=== PATIENT | female | born 1955 | race Caucasian/White ===

== ENCOUNTER 2020-05-16 07:20 | Outpatient (REF) | payer MEDICARE, SELFPAY ==
--- NOTE | 2020-05-16 07:26 | MM_ITS ---
EXAMINATION: MM SCREENING DIGITAL BREAST TOMOSYNTHESIS, BILATERAL CLINICAL INFORMATION: Screening. Asymptomatic. The lifetime risk of breast cancer based on the Tyrer-Cuzick Model is 3.0%. COMPARISON: Mammography: May 11, 2019 and studies dating back to July 14, 2014 TECHNIQUE: Digital breast tomosynthesis is performed in both the craniocaudal and mediolateral oblique views along with computer-aided detection (CAD). Synthesized 2D images are generated from the tomosynthesis. FINDINGS: The breasts are extremely dense, which lowers the sensitivity of mammography (ACR BI-RADS breast composition Category d). There are no significant masses, abnormal calcifications, or other abnormalities. MM/MM tomosynthesis screening BI IMPRESSION: There are no significant changes from prior study. ASSESSMENT: BI-RADS 1: Negative RECOMMENDATION: Routine annual mammography screening. This patient's information was entered into a reminder system with a target due date for their next mammogram.
== END 2020-05-16 07:21 | disposition home or self-care (01) ==
LOC: HO.MAMMO 07:20
PROVIDERS: PCP Internal Medicine; Visit Provider Internal Medicine
DX: Z12.31 Encounter for screening mammogram for malignant neoplasm of breast (principal)
CPT/HCPCS: 77063; 77067

== ENCOUNTER 2020-11-22 07:26 | Outpatient (REF) | payer MEDICARE, SELFPAY ==
[2020-11-22 11:47] LABS: Alanine Aminotransferase 22 U/L (0-31); Albumin Level 4.3 g/dL (3.5-5.0); Alkaline Phosphatase 72 U/L (39-117); Anion Gap 13 (12-20); Aspartate Amino Transferase 25 U/L (5-31); Bilirubin Total 0.7 mg/dL (0.0-1.0); Blood Urea Nitrogen 13 mg/dL (9-16); Carbon Dioxide 28 mmol/L (22-29); Chloride 103 mmol/L (96-108); Cholesterol 157 mg/dL; Estimated Glomerular Filt Rate > 60; Glucose Fasting 89 mg/dL (60-99); HDL Cholesterol 63 mg/dL; LDL Cholesterol Calculated 81 mg/dl; Sodium 139 mmol/L (135-145); Total Protein 6.8 g/dL (6.5-8.0); Triglycerides 66 mg/dL
[2020-11-22 12:05] LABS: SARS COV2 IgG Negative (Negative)
== END 2020-11-22 07:27 | disposition home or self-care (01) ==
LOC: HO.HMGCLDS 07:26
PROVIDERS: PCP Internal Medicine; Visit Provider Internal Medicine
DX: Z01.84 Encounter for antibody response examination (principal); E78.5 Hyperlipidemia, unspecified
CPT/HCPCS: 36415; 80053; 80061; 86769

== ENCOUNTER 2021-02-28 13:52 | Outpatient (REF) | payer MEDICARE, SELFPAY | END 2021-02-28 13:53 | disposition home or self-care (01) | LOC: HO.LNP 13:52 | PROVIDERS: Visit Provider Hospitalist | DX: R30.0 Dysuria (principal) | CPT/HCPCS: 87086; 87088; 87186 ==

== ENCOUNTER 2021-10-14 12:39 | Outpatient (REF) | payer MEDICARE, SELFPAY ==
--- NOTE | ~2021-10-14 | MM_ITS ---
EXAMINATION: MM SCREENING DIGITAL BREAST TOMOSYNTHESIS, BILATERAL CLINICAL INFORMATION: Screening. Asymptomatic. The lifetime risk of breast cancer based on the Tyrer-Cuzick Model is 3%. COMPARISON: Mammography: 05/16/2020, 05/11/2019, 02/11/2017 TECHNIQUE: Digital breast tomosynthesis is performed in both the craniocaudal and mediolateral oblique views along with computer-aided detection (CAD). Synthesized 2D images are generated from the tomosynthesis. FINDINGS: The breasts are heterogeneously dense, which may obscure small masses (ACR BI-RADS breast composition Category c). There are no significant masses, abnormal calcifications, or other abnormalities. Parenchymal pattern is similar to prior studies. There is no developing density or architectural abnormality. The axilla and skin contours are unremarkable. No significant changes. MM/MM tomosynthesis screening BI IMPRESSION: No mammographic evidence of malignancy. ASSESSMENT: BI-RADS 1: Negative RECOMMENDATION: Routine annual mammography screening. This patient's information was entered into a reminder system with a target due date for their next mammogram.
== END 2021-10-14 12:40 | disposition home or self-care (01) ==
LOC: HO.MAMMO 12:39
PROVIDERS: PCP Internal Medicine; Visit Provider Internal Medicine
DX: Z12.31 Encounter for screening mammogram for malignant neoplasm of breast (principal)
CPT/HCPCS: 77063; 77067

== ENCOUNTER 2021-11-05 06:42 | Outpatient (REF) | payer MEDICARE, SELFPAY ==
[2021-11-05 11:33] LABS: Appearance Urine TURBID; Color Urine YELLOW; Glucose Urine UA NEG (NEG); Leukocyte Esterase Urine TRACE (NEG); Nitrite Urine NEG (NEG); Specific Gravity - Urine >= 1.030 (1.005-1.025); Urine Blood NEG (NEG); Urine Ketones 5 MG/DL (NEG); Urine Protein TRACE MG/DL (NEG-TRACE)
[2021-11-05 11:46] LABS: Hematocrit 38.3 % (37.0-47.0); Hemoglobin 12.3 g/dl (12.0-16.0); Mean Corpuscular HGB Conc 32.1 g/dl (31.0-35.0); Mean Corpuscular Hemoglobin 29.5 pg (27.0-33.0); Mean Corpuscular Volume 91.8 fL (80.0-98.0); Mean Platelet Volume 9.2 fL (9.4-12.3); Platelet Count 322 X10*3/uL (160-400); Red Blood Count 4.17 X10*6/uL (4.20-5.50); White Blood Count 5.2 X10*3/uL (4.8-10.8)
[2021-11-05 11:54] LABS: Amorphous Sediment Urine 4+ /LPF; RBC Urine 0 /HPF (0); Uric Acid Crystals Urine 2+ /LPF; WBC Urine 0-2 /HPF (0-4)
[2021-11-05 12:04] LABS: Alanine Aminotransferase 20 U/L (0-31); Albumin Level 4.1 g/dL (3.5-5.0); Alkaline Phosphatase 73 U/L (39-117); Anion Gap 10 (12-20); Aspartate Amino Transferase 27 U/L (5-31); Bilirubin Total 0.5 mg/dL (0.0-1.0); Blood Urea Nitrogen 14 mg/dL (9-16); Calcium 9.4 mg/dL (8.4-10.2); Carbon Dioxide 28 mmol/L (22-29); Chloride 106 mmol/L (96-108); Cholesterol 153 mg/dL; Estimated Glomerular Filt Rate > 60; Glucose Fasting 108 mg/dL (60-99); HDL Cholesterol 68 mg/dL; LDL Cholesterol Calculated 74 mg/dl; Potassium 4.4 mmol/L (3.3-5.1); Sodium 140 mmol/L (135-145); Total Protein 6.7 g/dL (6.5-8.0); Triglycerides 56 mg/dL
[2021-11-05 12:25] LABS: TSH reflex Free T4 2.57 uIU/mL (0.32-4.0)
== END 2021-11-05 06:43 | disposition home or self-care (01) ==
LOC: HO.HMGCLDS 06:42
PROVIDERS: Visit Provider Internal Medicine
DX: Z00.00 Encounter for general adult medical examination without abnormal findings (principal); E78.5 Hyperlipidemia, unspecified
CPT/HCPCS: 36415; 80053; 80061; 81001; 84443; 85027

== ENCOUNTER 2022-11-07 06:36 | Outpatient (REF) | payer MEDICARE, SELFPAY ==
[2022-11-07 11:09] LABS: MANUAL DIFF FLAG NO
[2022-11-07 11:18] LABS: Basophils Percent Auto 0.8 % (0-2); Eosinophils Absolute Auto 0.5 X10*3/uL (0.0-0.4); Eosinophils Percent Auto 9.4 % (0-4); Hematocrit 40.3 % (37.0-47.0); Hemoglobin 12.9 g/dl (12.0-16.0); Imm Gran Abs Auto 0.01 X10*3/uL (0.00-0.03); Imm Gran Pct Auto 0.2 % (0.0-0.4); Lymphocytes Percent Auto 40.4 % (20-40); Mean Corpuscular Hemoglobin 29.3 pg (27.0-33.0); Mean Corpuscular Volume 91.4 fL (80.0-98.0); Mean Platelet Volume 9.2 fL (9.4-12.3); Monocytes Absolute Auto 0.4 X10*3/uL (0.1-1.2); Monocytes Percent Auto 7.2 % (2-11); Neutrophils Absolute Auto 2.1 x10*3/uL (2.0-8.3); Platelet Count 323 X10*3/uL (160-400); Red Blood Count 4.41 X10*6/uL (4.20-5.50); Red Cell Distribution Width 13.4 % (11.0-16.0)
[2022-11-07 12:12] LABS: Alanine Aminotransferase 19 U/L (0-31); Albumin Level 4.2 g/dL (3.5-5.0); Alkaline Phosphatase 70 U/L (39-117); Anion Gap 11 (12-20); Aspartate Amino Transferase 24 U/L (5-31); Bilirubin Total 0.9 mg/dL (0.0-1.0); Blood Urea Nitrogen 11 mg/dL (9-16); Carbon Dioxide 28 mmol/L (22-29); Chloride 106 mmol/L (96-108); Cholesterol 160 mg/dL; Estimated Glomerular Filt Rate > 60; Glucose Fasting 84 mg/dL (60-99); HDL Cholesterol 63 mg/dL; Potassium 4.1 mmol/L (3.3-5.1); Sodium 141 mmol/L (135-145); Total Protein 6.4 g/dL (6.5-8.0)
[2022-11-07 13:06] LABS: TSH reflex Free T4 3.14 uIU/mL (0.32-4.0)
[2022-11-11 15:58] LABS: Triglycerides 45 mg/dL
[2022-11-11 15:59] LABS: LDL Cholesterol Calculated 88 mg/dl
== END 2022-11-07 06:37 | disposition home or self-care (01) ==
LOC: HO.HMGCLDS 06:36
PROVIDERS: PCP Internal Medicine; Visit Provider Internal Medicine
DX: Z00.00 Encounter for general adult medical examination without abnormal findings (principal); E78.5 Hyperlipidemia, unspecified
CPT/HCPCS: 36415; 80053; 80061; 84443; 85025

== ENCOUNTER 2022-12-24 07:25 | Outpatient (REF) | payer MEDICARE, SELFPAY ==
--- NOTE | ~2022-12-24 | MM_ITS ---
EXAMINATION: MM SCREENING DIGITAL BREAST TOMOSYNTHESIS, BILATERAL CLINICAL INFORMATION: Screening. Asymptomatic. The lifetime risk of breast cancer based on the Tyrer-Cuzick Model is 3%. COMPARISON: Mammography: 10/14/2021, 05/16/2020, 05/11/2019, 02/11/2017; outside exam 07/14/2014 ([facility]). TECHNIQUE: Digital breast tomosynthesis is performed in both the craniocaudal and mediolateral oblique views along with computer-aided detection (CAD). Synthesized 2D images are generated from the tomosynthesis. FINDINGS: The breasts are heterogeneously dense, which may obscure small masses (ACR BI-RADS breast composition Category c). There are no significant masses, abnormal calcifications, or other abnormalities. No architectural abnormality or developing density or significant change from prior studies. Incidental intramammary node posterior upper outer left breast similar to prior exams. The axilla are unremarkable. MM/MM tomosynthesis screening BI IMPRESSION: No mammographic evidence of malignancy. ASSESSMENT: BI-RADS 2: Benign RECOMMENDATION: Routine annual mammography screening. This patient's information was entered into a reminder system with a target due date for their next mammogram.
== END 2022-12-24 07:26 | disposition home or self-care (01) ==
LOC: HO.MAMMO 07:25
PROVIDERS: PCP Internal Medicine; Visit Provider Internal Medicine
DX: Z12.31 Encounter for screening mammogram for malignant neoplasm of breast (principal)
CPT/HCPCS: 77063; 77067

== ENCOUNTER 2023-11-13 07:23 | Outpatient (REF) | payer MEDICARE, SELFPAY ==
[2023-11-13 11:10] LABS: MANUAL DIFF FLAG NO
[2023-11-13 11:19] LABS: Basophils Percent Auto 0.8 % (0-2); Eosinophils Absolute Auto 0.3 X10*3/uL (0.0-0.4); Eosinophils Percent Auto 7.2 % (0-4); Hematocrit 39.2 % (37.0-47.0); Hemoglobin 12.8 g/dl (12.0-16.0); Imm Gran Abs Auto 0.01 X10*3/uL (0.00-0.03); Imm Gran Pct Auto 0.2 % (0.0-0.4); Lymphocytes Absolute Auto 1.8 X10*3/uL (1.2-4.9); Lymphocytes Percent Auto 38.6 % (20-40); Mean Corpuscular HGB Conc 32.7 g/dl (31.0-35.0); Mean Corpuscular Hemoglobin 29.8 pg (27.0-33.0); Mean Corpuscular Volume 91.4 fL (80.0-98.0); Monocytes Absolute Auto 0.4 X10*3/uL (0.1-1.2); Monocytes Percent Auto 7.8 % (2-11); Neutrophils Absolute Auto 2.2 x10*3/uL (2.0-8.3); Neutrophils Percent Auto 45.4 % (45-73); Platelet Count 283 X10*3/uL (160-400); Red Blood Count 4.29 X10*6/uL (4.20-5.50); Red Cell Distribution Width 13.4 % (11.0-16.0); White Blood Count 4.7 X10*3/uL (4.8-10.8)
[2023-11-13 12:19] LABS: Alanine Aminotransferase 17 U/L (0-31); Albumin Level 3.9 g/dL (3.5-5.0); Alkaline Phosphatase 65 U/L (39-117); Anion Gap 13 (12-20); Aspartate Amino Transferase 21 U/L (5-31); Bilirubin Total 0.5 mg/dL (0.0-1.0); Blood Urea Nitrogen 19 mg/dL (9-16); Calcium 9.5 mg/dL (8.4-10.2); Carbon Dioxide 29 mmol/L (22-29); Chloride 108 mmol/L (96-108); Cholesterol 158 mg/dL (<200); Estimated Glomerular Filt Rate > 60; Glucose Fasting 88 mg/dL (60-99); HDL Cholesterol 62 mg/dL (>40); LDL Cholesterol Calculated 86 mg/dL (<100); Potassium 4.5 mmol/L (3.3-5.1); Sodium 145 mmol/L (135-145); Total Protein 6.6 g/dL (6.5-8.0); Triglycerides 54 mg/dL (<150)
== END 2023-11-13 07:24 | disposition home or self-care (01) ==
LOC: HO.HMGCLDS 07:23
PROVIDERS: PCP Internal Medicine; Visit Provider Internal Medicine
DX: Z00.00 Encounter for general adult medical examination without abnormal findings (principal); E78.5 Hyperlipidemia, unspecified; E55.9 Vitamin D deficiency, unspecified
CPT/HCPCS: 36415; 80053; 80061; 82306; 85025

== ENCOUNTER 2023-11-15 09:00 | Outpatient (AMB) | payer MEDICARE, SELFPAY ==
--- NOTE | 2023-11-15 09:07 | MHC.PC.OV ---
Vital Signs 11/15/23 09:08 Height 5 ft 2 in Weight 143 lb BMI 26.2 BP 118/74 Blood Pressure Location Rt brachial Position Sitting Pulse 75 Pulse Source Pulse Oximeter Pulse Oximetry (%) 98 Oxygen Delivery Method Room Air Intake Visit Reasons: Annual PE Intake Note: Pt is here today for PE. Allergies No Known Allergies Allergy (Verified 11/15/23 09:10) Medication List - Last Reconciled 11/15/23 by Parisa Benjamin MD atorvastatin 20 mg PO DAILY naproxen 500 mg PO BID PRN omeprazole 20 mg PO DAILY Tobacco use date assessed: 11/15/23 Fall risk assessment: No Falls in past year Last assessed Fall Risk: 11/15/23 Dental Screening Dental Screen Date: 11/15/23 Did you have a dental visit in the last 12 months?: Yes Did you have a dental problem in the last 6 months where you did not have access to dental care?: No Was dental information given to patient?: Patient has dentist HPI Annual PE HPI Details Patient presents for physical PFSH Medical History (Updated 11/15/23 @ 09:37 by Parisa Benjamin MD) Annual physical exam Osteoporosis Uveitis Hepatitis C GERD (gastroesophageal reflux disease) Insomnia Recovering alcoholic Osteoarthritis Fibromyalgia Hyperlipidemia Surgical History Hx of umbilical hernia repair S/P LEONARDO (total abdominal hysterectomy) History of esophagogastroduodenoscopy (EGD) H/O colonoscopy Family History Father Substance use disorder Brother Substance use disorder Brother Substance use disorder Social History Housing: House Patient Tobacco Use Status: Former Tobacco user (35 years ago) e-Cigarette/Vaping Use: Never Used service: No Current occupational status: retired Cognitive needs: No Hearing needs: No Vision needs: Yes Questionnaire PHQ-9 Over the last 2 weeks, how often have you been bothered by any of the following problems? 1. Little interest or pleasure in doing things: not at all 2. Feeling down, depressed, or hopeless: not at all 3. Trouble falling or staying asleep, or sleeping too much: not at all 4. Feeling tired or having little energy: not at all 5. Poor appetite or overeating: not at all 6. Feeling bad about yourself - or that you are a failure or have let yourself or your family down: not at all 7. Trouble concentrating on things, such as reading the newspaper or watching television: not at all 8. Moving or speaking so slowly that other people could have noticed. Or the opposite - being so fidgety or restless that you have been moving around a lot more than usual: not at all 9. Thoughts that you would be better off or of hurting yourself in some way: not at all Total score: 0 Depression Screening Interpretation: Negative Depression Screening Done: Yes Source: Developed by Drs. Julius Newell, Hoa London, Ruddy Britton and colleagues, with an educational debbie from [employer] Thrive Questionnaire Date Thrive assessed: 11/15/23 I am a: Patient What is your living situation today?: I have a steady place to live Within the past 12 months, did the food you bought not last and you didn't have the money to get more?: Never true Within the past 12 months, did you worry whether your food would run out before you got money to buy more?: Never true Do you have trouble paying for medicines?: No Do you have trouble getting transportation to medical appointments?: No Do you have trouble paying your heating and electricity bill?: No Do you have trouble taking care of your child, family member or friend?: No Do you have trouble with day-to-day activities such as bathing, preparing meals, shopping, managing finances, etc.?: No Are you currently unemployed and looking for a job?: No Are you interested in more education?: No Please select the resources that you would like help with: None THRIVE Score: 0 AUDIT C Alcohol Use Questionnaire (AUDIT-C) 1. How often do you have a drink containing alcohol?: Never 3. How often do you have six or more drinks on one occasion?: Never Total Score: 0 BRETT-7 AMB Questionnaire BRETT-7 Date BRETT - 7 assessed: 11/15/23 Feeling nervous, anxious, or on edge: 0 = Not at all Not being able to stop or control worryin = Not at all Worrying too much about different things: 0 = Not at all Trouble relaxin = Not at all Being so restless that it is hard to sit still: 0 = Not at all Becoming easily annoyed or irritable: 0 = Not at all Feeling afraid as if something awful might happen: 0 = Not at all Total BRETT-7 score (0-4 normal; 5-9 mild; 10-14 moderate; 15-21 severe): 0 Source: Developed by Drs. Julius Newell, Hoa London, Ruddy Britton and colleagues, with an educational debbie from [employer] Review of Systems Const All systems reviewed & are unremarkable except as noted in HPI and below Reports no additional complaints ENT Reports no additional complaints Card Reports no additional complaints Resp Reports no additional complaints GI Reports no additional complaints Reports no additional complaints Physical exam (Primary Care) Vital Signs: Last Vital Signs Pulse 75 11/15/23 09:08 BP 118/74 11/15/23 09:08 Pulse Ox 98 11/15/23 09:08 Oxygen Delivery Method Room Air 11/15/23 09:08 BMI result Body Mass Index 26.2 Tobacco/Smoking Status: Tobacco use Status Tobacco use date assessed 11/15/23 11/15/23 09:13 Patient Tobacco Use Status Former Tobacco user (35 11/15/23 09:13 years ago) e-Cigarette/Vaping Use Never Used 11/15/23 09:13 PHQ-9: PHQ-9 Score PHQ-9: Total score 0 11/15/23 10:02 Depression Screening Interpretation: Negative Thrive Assessment: Date of Thrive Assessment Date Thrive assessed 11/15/23 11/15/23 10:02 Const General: no acute distress HENMT Head: Yes normal to inspection General nose exam: Normal external nose present Mouth: Normal oral and palatal mucosa present Throat: Yes posterior oropharynx normal Eyes General: appearance normal, both eyes and all related structures Neck Neck: Yes no lymphadenopathy and Yes supple Resp Effort & Inspection: normal respiratory effort Auscultation: clear to auscultation bilaterally Cardio Rhythm: regular rhythm Heart sounds: S1 normal heart sound present and S2 normal heart sound present GI Inspection: Yes normal to inspection Palpation (GI): Soft to palpation Percussion: Yes normal to percussion Auscultation: normal bowel sounds Assessment and Plan Assessment & Plan (1) Annual physical exam: Code(s): Z00.00 - Encounter for general adult medical examination without abnormal findings Plan: Well-balanced diet regular physical activity discussed with the patient. She is up-to-date with mammogram colonoscopy (2) Postmenopausal: Code(s): Z78.0 - Asymptomatic menopausal state Plan: Check DEXA Orders: Orders Comprehensive [place]. Panel Fast 1 Year E55.9 - Vitamin D deficiency, unspecified, E78.5 - Hyperlipidemia, unspecified, Z00.00 - Encounter for general adult medical examination without abnormal findings, Z78.0 - Asymptomatic menopausal state Complete Blood Count Auto Diff 1 Year E55.9 - Vitamin D deficiency, unspecified, E78.5 - Hyperlipidemia, unspecified, Z00.00 - Encounter for general adult medical examination without abnormal findings, Z78.0 - Asymptomatic menopausal state XR DEXA axial skeleton Today Z78.0 - Asymptomatic menopausal state TSH reflex Free T4 1 Year E55.9 - Vitamin D deficiency, unspecified, E78.5 - Hyperlipidemia, unspecified, Z00.00 - Encounter for general adult medical examination without abnormal findings, Z78.0 - Asymptomatic menopausal state Lipid Panel 1 Year E55.9 - Vitamin D deficiency, unspecified, E78.5 - Hyperlipidemia, unspecified, Z00.00 - Encounter for general adult medical examination without abnormal findings, Z78.0 - Asymptomatic menopausal state Vitamin D 25-OH Total 1 Year E55.9 - Vitamin D deficiency, unspecified, E78.5 - Hyperlipidemia, unspecified, Z00.00 - Encounter for general adult medical examination without abnormal findings, Z78.0 - Asymptomatic menopausal state Coding Level of Care Code Est Pt Prev Care >65y(94526) Diagnoses Annual physical exam Z00.00 Postmenopausal Z78.0
[2023-11-15 09:08] VITALS: BP 118/74; PULSE 75; O2SAT 98; BMI 26.2
== END 2023-11-15 09:53 | disposition home or self-care (01) ==
PROVIDERS: Visit Provider Internal Medicine
DX: Z00.00 Encounter for general adult medical examination without abnormal findings (principal); Z78.0 Asymptomatic menopausal state
CPT/HCPCS: 99397

== ENCOUNTER 2023-12-03 11:12 | Outpatient (REF) | payer MEDICARE, SELFPAY ==
--- NOTE | ~2023-12-03 | MM_ITS ---
EXAMINATION: BONE DENSITOMETRY CLINICAL INDICATION: Asymptomatic menopausal state. COMPARISON: Baseline BD dated 12/23/2017. TECHNIQUE: Using a [employer] DXA System (software version: 13.1) manufactured by [employer], dual-energy x-ray absorptiometry was performed of the lumbar spine and left hip. The images are of good technical quality. Summary results are attached. FINDINGS: LEFT FEMUR, NECK: Current: BMD 0.770 g/cm2, Z-score -0.2, T-score -1.9, osteopenia. Baseline: BMD 0.905 g/cm2. LEFT FEMUR, TOTAL: Current: BMD 0.829 g/cm2, Z-score 0.0, T-score -1.4, osteopenia, 14.6% decrease from baseline (<5% change is not significant). Baseline: BMD 0.971 g/cm2. AP SPINE L1-L3 (excluding L4): The data of L1-L4 has been changed to exclude the L4 vertebral body, because degenerative sclerosis at this level may cause overestimation of lumbar spine density. Current: BMD 0.839 g/cm2, Z-score -1.1, T-score -2.8, osteoporosis, 10.2% decrease from baseline (<5% change is not significant). Baseline: BMD 0.934 g/cm2. IDENTIFIED RISK FACTORS: Early menopause, secondary osteoporosis, hysterectomy, right ovariectomy,. HISTORY OF FRACTURE: None listed. MEDICATIONS: Calcium, multivitamin, vitamin D. MM/XR DEXA axial skeleton IMPRESSION: 1. DIAGNOSIS: Osteoporosis based on the lowest T-score value of -2.8 in the lumbar spine applying World Health Organization criteria. 2. 10-YEAR FRACTURE RISK PREDICTION, FRAX: According to the guidelines, FRAX calculation should only be performed on patients in the osteopenia bone density category. Therefore, FRAX was not performed on this patient.? 3. Treatment Recommendations: NOF guidelines recommend consideration for treatment in postmenopausal women and men age 50 and older presenting with the following: -A hip or vertebral (clinical or morphometric) fracture. -T-score less than or equal to -2.5 at the femoral neck or spine after appropriate evaluation to exclude secondary causes. -Low bone mass at the hip or spine and a 10-year fracture probability by FRAX of greater than or equal to 3% for hip fracture or greater than or equal to 20% for major osteoporotic fracture based on the [place] adapted WHO algorithm. 4. Other Recommendations: All treatment decisions require clinical judgment and consideration of individual patient factors, including patient preferences, comorbidities, previous drug use, risk factors not captured in the FRAX model (e.g. frailty, falls, vitamin D deficiency, increased bone turnover, interval significant decline in bone density) and possible under or overestimation of fracture risk by FRAX. Additional medical evaluation for secondary cause of low bone mineral density may be appropriate. FUTURE SCAN RECOMMENDATION: People with diagnosed cases of osteoporosis or at high risk for fracture should have regular bone mineral density tests. For patients eligible for Medicare, routine testing is allowed once every 2 years. The testing frequency can be increased to one year for patients who have rapidly progressing disease, those who are receiving or discontinuing medical therapy to restore bone mass, or have additional risk factors.
== END 2023-12-03 11:13 | disposition home or self-care (01) ==
LOC: HO.MAMMO 11:12
PROVIDERS: PCP Internal Medicine; Visit Provider Internal Medicine
DX: Z13.820 Encounter for screening for osteoporosis (principal); Z78.0 Asymptomatic menopausal state
CPT/HCPCS: 77080

== ENCOUNTER 2023-12-14 08:13 | Outpatient (AMB) | payer MEDICARE, SELFPAY ==
--- NOTE | 2023-12-14 09:05 | AM.OFFWIN_ITS ---
Intake Vital Signs 12/14/23 09:06 Height 5 ft 2 in Weight 143 lb BMI 26.2 BP 122/74 Blood Pressure Location Rt brachial Position Sitting Pulse 76 Pulse Source Pulse Oximeter Temp 97.8 F Temp Source Oral Pulse Oximetry (%) 98 Intake Visit Reasons: EP LT Foot Lump under Arch/RT shoulder Intake Note: pt is here left foot lump in the middle of under foot in arch. patient also states she is experiencing right shoulder pain Patient Tobacco Use Status: Former Tobacco user (35 years ago) Allergies No Known Allergies Allergy (Verified 12/14/23 09:07) Do you need a note to return to daycare/school/sports/work: Yes HPI HPI Comments History of Present Illness Details This is a 68-year-old female with a past medical history of hyperlipidemia and gastroesophageal reflux disease presenting for evaluation of left foot pain and right shoulder pain. Patient states she has a history of plantar fasciitis and she has been having pain in her left foot arch for the past 1 month. Patient has been using ice after work and Naprosyn twice daily without complete relief for discomfort. Patient states that she feels there is a lump on her left foot arch. Additionally, patient is complaining of posterior right shoulder pain that is exacerbated by repetitive motion when she works at [employer]. Patient has been taking Naprosyn twice daily for the past 1 month. [facility], [facility] Medical History Annual physical exam Osteoporosis Uveitis Hepatitis C GERD (gastroesophageal reflux disease) Insomnia Recovering alcoholic Osteoarthritis Fibromyalgia Hyperlipidemia Surgical History Hx of umbilical hernia repair S/P LEONARDO (total abdominal hysterectomy) History of esophagogastroduodenoscopy (EGD) H/O colonoscopy Family History Father Substance use disorder Brother Substance use disorder Brother Substance use disorder Social History Housing: House Patient Tobacco Use Status: Former Tobacco user (35 years ago) e-Cigarette/Vaping Use: Never Used service: No Current occupational status: retired Cognitive needs: No Hearing needs: No Vision needs: Yes Review of Systems Const All systems reviewed & are unremarkable except as noted in HPI and below Reports no additional complaints ENT Reports no additional complaints Card Reports no additional complaints Resp Reports no additional complaints GI Reports no additional complaints Reports no additional complaints Musc Details: Posterior right shoulder pain, Left foot pain, plantar surface. Reports as per HPI Skin/Breast Reports system reviewed and no additional complaints, except as documented Neuro Reports no additional complaints Psych Reports no additional complaints Physical Exam Vital Signs: Last Vital Signs Temp 97.8 F 12/14/23 09:06 Pulse 76 12/14/23 09:06 BP 122/74 12/14/23 09:06 Pulse Ox 98 12/14/23 09:06 BMI result Body Mass Index 26.2 Const General: cooperative, healthy appearing, comfortable, no acute distress, well developed, alert and awake Nutritional Appearance: average body habitus Orientation/consciousness: patient oriented x3 Limitations: no limitations Skin General skin exam: no rashes or lesions noted Neuro General: patient oriented x3 Extrem Other: R. shoulder pain exacerbated with abduction of RUE against resistance and internal rotation of RUE against resistance. General: Yes no calf tenderness and Yes normal gait Right upper extremity: shoulder/upper arm (pain to palpation right posterior SCM and right trapezius musculature) Details: normal to inspection Left lower extremity: foot Details: normal capillary refill, normal to inspection, abnormal to inspection, tenderness Location: of the plantar foot Location: other (medial aspect of the plantar surface of the foot; no subcutaneous lesions noted), toes with normal ROM, no edema and motor-sensory exam Details: two point discrimination normal and light-touch normal Psych Appearance: grossly normal Mental Status: mental status grossly normal Insight: Good insight present (Psych) Judgement: Good judgement present (Psych) Assessment & Plan Assessment & Plan (1) Right shoulder strain: Comment: Given the chronicity of her discomfort, patient would benefit from a physical therapy evaluation. Code(s): S46.911A - Strain of unspecified muscle, fascia and tendon at shoulder and upper arm level, right arm, initial encounter Qualifiers: Encounter type: initial encounter Qualified Code(s): S46.911A - Strain of unspecified muscle, fascia and tendon at shoulder and upper arm level, right arm, initial encounter Plan: Naprosyn twice daily, patient will follow up with primary care physician for physical therapy referral. (2) Plantar fasciitis, left: Comment: Patient reports a history of fibromyalgia as well as left plantar fasciitis. Patient would benefit from a podiatry evaluation for further discussion of arch support. Code(s): M72.2 - Plantar fascial fibromatosis Plan: Naprosyn twice daily; patient will follow up with primary care physician for podiatry referral. Coding Level of Care Code Est Pt Level 3 (62741) Diagnoses Strain of right shoulder, initial encounter S46.911A Encounter type: initial encounter Plantar fasciitis, left M72.2 Time Spent (min) 20
[2023-12-14 09:06] VITALS: BP 122/74; PULSE 76; TEMP 36.6; O2SAT 98; BMI 26.2
== END 2023-12-14 09:50 | disposition home or self-care (01) ==
PROVIDERS: PCP Internal Medicine; Visit Provider Physician Assistant
DX: S46.911A Strain of unspecified muscle, fascia and tendon at shoulder and upper arm level, right arm, initial encounter (principal); M72.2 Plantar fascial fibromatosis
CPT/HCPCS: 99213

== ENCOUNTER 2023-12-28 08:18 | Outpatient (REF) | payer MEDICARE, SELFPAY | END 2023-12-28 08:19 | disposition home or self-care (01) | LOC: HO.MAMMO 08:18 | PROVIDERS: PCP Internal Medicine; Visit Provider Internal Medicine | DX: Z12.31 Encounter for screening mammogram for malignant neoplasm of breast (principal) | CPT/HCPCS: 77063; 77067 ==

== ENCOUNTER → 2023-12-28 08:30 | Outpatient (BNV) | payer MEDICARE, SELFPAY | PROVIDERS: PCP Internal Medicine; Visit Provider Radiology Diagnostic Radiology | DX: Z12.31 Encounter for screening mammogram for malignant neoplasm of breast (principal) | CPT/HCPCS: 77063; 77067 ==

== ENCOUNTER 2024-01-28 11:57 | Outpatient (AMB) | payer MEDICARE, SELFPAY ==
[2024-01-28 11:59] VITALS: BP 122/80; PULSE 68; O2SAT 95; BMI 26.5
--- NOTE | 2024-01-28 11:59 | MHC.PC.OV ---
Vital Signs 01/28/24 11:59 Height 5 ft 2 in Weight 145 lb BMI 26.5 BP 122/80 Blood Pressure Location Rt brachial Position Sitting Pulse 68 Pulse Source Pulse Oximeter Pulse Oximetry (%) 95 Oxygen Delivery Method Room Air Intake Visit Reasons: Discuss osteoporosis treatment Intake Note: Pt is here today to discuss osteoporosis treatment Allergies No Known Allergies Allergy (Verified 01/28/24 12:01) Medication List - Last Reconciled 01/28/24 by Parisa Benjamin MD atorvastatin 20 mg PO DAILY naproxen 500 mg PO BID PRN omeprazole 20 mg PO DAILY Tobacco use date assessed: 01/28/24 Fall risk assessment: No Falls in past year Last assessed Fall Risk: 01/28/24 Dental Screening Dental Screen Date: 01/28/24 Did you have a dental visit in the last 12 months?: No Did you have a dental problem in the last 6 months where you did not have access to dental care?: No Was dental information given to patient?: Patient has dentist HPI Discuss osteoporosis treatment HPI Details Patient presents to discuss DEXA, the lowest T-score is and lumbar spine at -2.8. Patient has been exercising and increased weight lifting to 3 times a week. She has been taking vitamin-D supplement daily [facility] Medical History (Updated 01/28/24 @ 12:43 by Parisa Benjamin MD) Annual physical exam Osteoporosis Uveitis Hepatitis C GERD (gastroesophageal reflux disease) Insomnia Recovering alcoholic Osteoarthritis Fibromyalgia Hyperlipidemia Surgical History Hx of umbilical hernia repair S/P LEONARDO (total abdominal hysterectomy) History of esophagogastroduodenoscopy (EGD) H/O colonoscopy Family History Father Substance use disorder Brother Substance use disorder Brother Substance use disorder Social History Housing: House Patient Tobacco Use Status: Former Tobacco user (35 years ago) e-Cigarette/Vaping Use: Never Used service: No Current occupational status: retired Cognitive needs: No Hearing needs: No Vision needs: Yes Questionnaire PHQ-9 Over the last 2 weeks, how often have you been bothered by any of the following problems? 1. Little interest or pleasure in doing things: not at all 2. Feeling down, depressed, or hopeless: not at all 3. Trouble falling or staying asleep, or sleeping too much: not at all 4. Feeling tired or having little energy: not at all 5. Poor appetite or overeating: not at all 6. Feeling bad about yourself - or that you are a failure or have let yourself or your family down: not at all 7. Trouble concentrating on things, such as reading the newspaper or watching television: not at all 8. Moving or speaking so slowly that other people could have noticed. Or the opposite - being so fidgety or restless that you have been moving around a lot more than usual: not at all 9. Thoughts that you would be better off or of hurting yourself in some way: not at all Total score: 0 Source: Developed by Drs. Julius Newell, Hoa London, Ruddy Britton and colleagues, with an educational debbie from [employer]. Thrive Questionnaire Date Thrive assessed: 11/15/23 I am a: Patient What is your living situation today?: I have a steady place to live Within the past 12 months, did the food you bought not last and you didn't have the money to get more?: Never true Within the past 12 months, did you worry whether your food would run out before you got money to buy more?: Never true Do you have trouble paying for medicines?: No Do you have trouble getting transportation to medical appointments?: No Do you have trouble paying your heating and electricity bill?: No Do you have trouble taking care of your child, family member or friend?: No Do you have trouble with day-to-day activities such as bathing, preparing meals, shopping, managing finances, etc.?: No Are you currently unemployed and looking for a job?: No Are you interested in more education?: No Please select the resources that you would like help with: Housing/[facility] Currently or been in a relationship where the following occur: No concerns reported THRIVE Score: 0 AUDIT C Alcohol Use Questionnaire (AUDIT-C) 1. How often do you have a drink containing alcohol?: Never Total Score: 0 BRETT-7 AMB Questionnaire BRETT-7 Date BRETT - 7 assessed: 05/06/24 Feeling nervous, anxious, or on edge: 0 = Not at all Not being able to stop or control worryin = Not at all Worrying too much about different things: 0 = Not at all Trouble relaxin = Not at all Being so restless that it is hard to sit still: 0 = Not at all Becoming easily annoyed or irritable: 0 = Not at all Feeling afraid as if something awful might happen: 0 = Not at all Total BRETT-7 score (0-4 normal; 5-9 mild; 10-14 moderate; 15-21 severe): 0 Source: Developed by Drs. Julius Newell, Hoa London, Ruddy Britton and colleagues, with an educational debbie from [employer]. Review of Systems Const All systems reviewed & are unremarkable except as noted in HPI and below ENT Reports no additional complaints Card Reports no additional complaints Resp Reports no additional complaints GI Reports no additional complaints Physical exam (Primary Care) Vital Signs: Last Vital Signs Pulse 68 01/28/24 11:59 BP 122/80 01/28/24 11:59 Pulse Ox 95 01/28/24 11:59 Oxygen Delivery Method Room Air 01/28/24 11:59 BMI result Body Mass Index 26.5 Tobacco/Smoking Status: Tobacco use Status Tobacco use date assessed 01/28/24 01/28/24 12:04 Patient Tobacco Use Status Former Tobacco user (34 01/28/24 12:04 years ago) e-Cigarette/Vaping Use Never Used 01/28/24 12:04 PHQ-9: PHQ-9 Score PHQ-9: Total score 0 01/28/24 12:04 Thrive Assessment: Date of Thrive Assessment Date Thrive assessed 11/15/23 01/28/24 12:04 Currently or been in a relationship where the following occur: No concerns reported Resp Effort & Inspection: normal respiratory effort Auscultation: clear to auscultation bilaterally Cardio Rhythm: regular rhythm Heart sounds: S1 normal heart sound present and S2 normal heart sound present GI Inspection: Yes normal to inspection Assessment and Plan Assessment & Plan (1) Osteoporosis: Comment: DEXA 11/2023 T score -2.8 , cont exercise and vit D supplement, repeat in 2 yrs Code(s): M81.0 - Age-related osteoporosis without current pathological fracture Plan: Continue vitamin-D supplement and weight bearing exercise and repeat DEXA in 2 years Coding Level of Care Code Est Pt Level 3 (17455) Diagnoses Osteoporosis M81.0
== END 2024-01-28 12:44 | disposition home or self-care (01) ==
PROVIDERS: PCP Internal Medicine; Visit Provider Internal Medicine
DX: M81.0 Age-related osteoporosis without current pathological fracture (principal)
CPT/HCPCS: 99213

== ENCOUNTER 2024-12-14 07:56 | Outpatient (AMB) | payer MEDICARE, SELFPAY ==
--- OUTSIDE RECORDS SUMMARY | 2024-12-14 08:00 | XMS_ITS | Patient Health Record ---
Author Organization [facility] Address [address] [place] [address] Care Team Providers Care Vice President Of Manufacturing Name Role Phone Parisa Benjamin MD Primary Care Provider Unavaila Jesi Carlos Unavailable [phone] Reason For Referral No Information Encounters Encounter Location Date Provider Diagnosis [facility] [address] [place] [address] 12/27/2023 [facility] [address] [place] [address] 03/23/2024 Jesi Harris Plan Of Treatment No Information Insurance Providers Payer Name Payer Address Payer Phone Subscriber Number Group Number Insured Name Patient Relationship to Insured Coverage Start Date Coverage End Date [facility] 65 Medicare Preferred [address] [place] [address] [phone] [id number] Cony Flowers Self - patient is the insured
[2024-12-14 08:08] VITALS: BP 106/70; PULSE 74; RESP 18; TEMP 36.5; O2SAT 99; BMI 26.5
--- NOTE | 2024-12-14 08:08 | MHC.PC.OV ---
Vital Signs 12/14/24 08:08 Height 5 ft 2 in Weight 145 lb BMI 26.5 BP 106/70 Blood Pressure Location Rt brachial Position Sitting Respiration 18 Pulse 74 Pulse Source Pulse Oximeter Temp 97.7 F Temp Source Oral Pulse Oximetry (%) 99 Oxygen Delivery Method Room Air Intake Visit Reasons: Annual PE Intake Note: Pt is here today for PE. Allergies No Known Allergies Allergy (Verified 12/14/24 08:10) Medication List - Last Reconciled 12/14/24 by Parisa Benjamin MD atorvastatin 20 mg PO DAILY naproxen 500 mg PO BID PRN omeprazole 20 mg PO DAILY Tobacco use date assessed: 12/14/24 Fall risk assessment: No Falls in past year Last assessed Fall Risk: 12/14/24 Dental Screening Dental Screen Date: 12/14/24 Did you have a dental visit in the last 12 months?: Yes Did you have a dental problem in the last 6 months where you did not have access to dental care?: No Was dental information given to patient?: Patient has dentist HPI Annual PE HPI Details Patient presents for physical PFSH Medical History Annual physical exam Osteoporosis Uveitis Hepatitis C GERD (gastroesophageal reflux disease) Insomnia Recovering alcoholic Osteoarthritis Fibromyalgia Hyperlipidemia Surgical History Hx of umbilical hernia repair S/P LEONARDO (total abdominal hysterectomy) History of esophagogastroduodenoscopy (EGD) H/O colonoscopy Family History Father Substance use disorder Brother Substance use disorder Brother Substance use disorder Social History Housing: House Patient Tobacco Use Status: Former Tobacco user e-Cigarette/Vaping Use: Never Used service: No Current occupational status: retired Cognitive needs: No Hearing needs: No Vision needs: Yes Questionnaire PHQ-9 Over the last 2 weeks, how often have you been bothered by any of the following problems? 1. Little interest or pleasure in doing things: not at all 2. Feeling down, depressed, or hopeless: not at all 3. Trouble falling or staying asleep, or sleeping too much: not at all 4. Feeling tired or having little energy: not at all 5. Poor appetite or overeating: not at all 6. Feeling bad about yourself - or that you are a failure or have let yourself or your family down: not at all 7. Trouble concentrating on things, such as reading the newspaper or watching television: not at all 8. Moving or speaking so slowly that other people could have noticed. Or the opposite - being so fidgety or restless that you have been moving around a lot more than usual: not at all 9. Thoughts that you would be better off or of hurting yourself in some way: not at all Total score: 0 Depression Screening Interpretation: Negative Depression Screening Done: Yes 30618 - PHQ-9 Billing: Yes Source: Developed by Drs. Julius Newell, Hoa London, Ruddy Britton and colleagues, with an educational debbie from [employer]. Thrive Questionnaire Date Thrive assessed: 12/14/24 I am a: Patient What is your living situation today?: I have a steady place to live Within the past 12 months, did the food you bought not last and you didn't have the money to get more?: Never true Within the past 12 months, did you worry whether your food would run out before you got money to buy more?: Never true Do you have trouble paying for medicines?: No Do you have trouble getting transportation to medical appointments?: No Do you have trouble paying your heating and electricity bill?: No Do you have trouble taking care of your child, family member or friend?: No Do you have trouble with day-to-day activities such as bathing, preparing meals, shopping, managing finances, etc.?: No Are you currently unemployed and looking for a job?: No Are you interested in more education?: No Please select the resources that you would like help with: None Currently or been in a relationship where the following occur: No concerns reported THRIVE Score: 0 AUDIT C Alcohol Use Questionnaire (AUDIT-C) 1. How often do you have a drink containing alcohol?: Never 3. How often do you have six or more drinks on one occasion?: Never Total Score: 0 BRETT-7 AMB Questionnaire BRETT-7 Date BRETT - 7 assessed: 12/14/24 Feeling nervous, anxious, or on edge: 0 = Not at all Not being able to stop or control worryin = Not at all Worrying too much about different things: 0 = Not at all Trouble relaxin = Not at all Being so restless that it is hard to sit still: 0 = Not at all Becoming easily annoyed or irritable: 0 = Not at all Feeling afraid as if something awful might happen: 0 = Not at all Total BRETT-7 score (0-4 normal; 5-9 mild; 10-14 moderate; 15-21 severe): 0 Source: Developed by Drs. Julius Newell, Hoa London, Ruddy Britton and colleagues, with an educational debbie from [employer]. BRETT-7 Assessment Billing BRETT-7 Assessment Tool: BRETT-7 Assessment 62795 Review of Systems Const All systems reviewed & are unremarkable except as noted in HPI and below Reports no additional complaints Eyes Reports no additional complaints ENT Reports no additional complaints Card Reports no additional complaints Resp Reports no additional complaints GI Reports no additional complaints Reports no additional complaints Physical exam (Primary Care) Vital Signs: Last Vital Signs Temp 97.7 F 12/14/24 08:08 Pulse 74 12/14/24 08:08 Resp 18 12/14/24 08:08 BP 106/70 12/14/24 08:08 Pulse Ox 99 12/14/24 08:08 Oxygen Delivery Method Room Air 12/14/24 08:08 BMI result Body Mass Index 26.5 Tobacco/Smoking Status: Tobacco use Status Tobacco use date assessed 12/14/24 12/14/24 08:11 Patient Tobacco Use Status Former Tobacco user (34 12/14/24 08:11 years ago) e-Cigarette/Vaping Use Never Used 12/14/24 08:11 PHQ-9: PHQ-9 Score PHQ-9: Total score 0 12/14/24 08:36 Depression Screening Interpretation: Negative Thrive Assessment: Date of Thrive Assessment Date Thrive assessed 12/14/24 12/14/24 08:18 Currently or been in a relationship where the following occur: No concerns reported Const General: no acute distress HENMT Head: Yes normal to inspection Ears: hearing grossly normal bilaterally General nose exam: Normal external nose present Face and sinus: Yes normal facial exam Mouth: Normal oral and palatal mucosa present Throat: Yes posterior oropharynx normal Eyes General: appearance normal, both eyes and all related structures Neck Neck: Yes no lymphadenopathy and Yes supple Resp Effort & Inspection: normal respiratory effort Auscultation: clear to auscultation bilaterally Cardio Rhythm: regular rhythm Heart sounds: S1 normal heart sound present and S2 normal heart sound present GI Inspection: Yes normal to inspection Palpation (GI): Soft to palpation Percussion: Yes normal to percussion Auscultation: normal bowel sounds Coding Level of Care Code Est Pt Prev Care >65y(07435) Diagnoses Osteoporosis M81.0 Annual physical exam Z00.00 Hyperlipidemia E78.5 Additional Codes BRETT-7 Assessment Billing - BRETT-7 Assessment Tool: BRETT-7 Assessment 96601 ([id number]) PHQ-9 - 88695 - PHQ-9 Billing: Yes ([id number]) Assessment & Plan Assessment & Plan (1) Osteoporosis: Comment: DEXA 11/2023 T score -2.8 , cont exercise and vit D supplement, repeat in 2 yrs Code(s): M81.0 - Age-related osteoporosis without current pathological fracture Category: Medical Plan: Continue vitamin-D supplement weight-bearing exercises repeat DEXA next year (2) Annual physical exam: Comment: Patient declined Pneumovax 12/2023 Code(s): Z00.00 - Encounter for general adult medical examination without abnormal findings Category: Medical Plan: Well-balanced diet regular exercise discussed with the patient. She will return for fasting blood work. Patient will schedule an appointment for mammogram. She had negative colonoscopy in 2019 (3) Hyperlipidemia: Code(s): E78.5 - Hyperlipidemia, unspecified Category: Medical Plan: Continue statin Orders: Orders Comprehensive Met. Panel 1 Year E78.5 - Hyperlipidemia, unspecified, M81.0 - Age-related osteoporosis without current pathological fracture, Z00.00 - Encounter for general adult medical examination without abnormal findings Complete Blood Count Auto Diff 1 Year E78.5 - Hyperlipidemia, unspecified, M81.0 - Age-related osteoporosis without current pathological fracture, Z00.00 - Encounter for general adult medical examination without abnormal findings Lipid Panel 1 Year E78.5 - Hyperlipidemia, unspecified, M81.0 - Age-related osteoporosis without current pathological fracture, Z00.00 - Encounter for general adult medical examination without abnormal findings Vitamin D 25-OH Total 1 Year E78.5 - Hyperlipidemia, unspecified, M81.0 - Age-related osteoporosis without current pathological fracture, Z00.00 - Encounter for general adult medical examination without abnormal findings TSH reflex Free T4 1 Year E78.5 - Hyperlipidemia, unspecified, M81.0 - Age-related osteoporosis without current pathological fracture, Z00.00 - Encounter for general adult medical examination without abnormal findings
== END 2024-12-14 08:45 | disposition home or self-care (01) ==
LOC: HO.HMCC 07:57
PROVIDERS: PCP Internal Medicine; Visit Provider Internal Medicine
DX: M81.0 Age-related osteoporosis without current pathological fracture (principal); Z00.00 Encounter for general adult medical examination without abnormal findings; E78.5 Hyperlipidemia, unspecified

== ENCOUNTER → 2024-12-14 07:56 | Outpatient (BNVA) | payer MEDICARE, SELFPAY | PROVIDERS: PCP Internal Medicine; Visit Provider Internal Medicine | DX: Z00.00 Encounter for general adult medical examination without abnormal findings (principal); M81.0 Age-related osteoporosis without current pathological fracture; E78.5 Hyperlipidemia, unspecified | CPT/HCPCS: 96127; 99397 ==

== ENCOUNTER 2024-12-21 06:56 | Outpatient (REF) | payer MEDICARE, SELFPAY ==
--- OUTSIDE RECORDS SUMMARY | 2024-12-21 06:59 | XMS_ITS | Patient Health Record ---
Author Organization [facility] Address [address] [place] [address] Care Team Providers Care Real Estate Economist Name Role Phone Parisa Benjamin MD Primary Care Provider Unavaila Jesi Carlos Unavailable [phone] Reason For Referral No Information Encounters Encounter Location Date Provider Diagnosis [facility] [address] [place] [address] 12/27/2023 [facility] [address] [place] [address] 03/23/2024 Jesi Harris Plan Of Treatment No Information Insurance Providers Payer Name Payer Address Payer Phone Subscriber Number Group Number Insured Name Patient Relationship to Insured Coverage Start Date Coverage End Date [facility] Medicare Preferred [address] [place] [address] [phone] [id number] Cony Flowers Self - patient is the insured
[2024-12-21 10:06] LABS: MANUAL DIFF FLAG NO
[2024-12-21 10:11] LABS: Basophils Absolute Auto 0.1 X10*3/uL (0.0-0.2); Basophils Percent Auto 1.2 % (0-2); Eosinophils Absolute Auto 0.3 X10*3/uL (0.0-0.4); Eosinophils Percent Auto 5.8 % (0-4); Hematocrit 41.2 % (37.0-47.0); Hemoglobin 13.3 g/dl (12.0-16.0); Imm Gran Abs Auto 0.01 X10*3/uL (0.00-0.03); Imm Gran Pct Auto 0.2 % (0.0-0.4); Lymphocytes Absolute Auto 1.8 X10*3/uL (1.2-4.9); Lymphocytes Percent Auto 41.5 % (20-40); Mean Corpuscular HGB Conc 32.3 g/dl (31.0-35.0); Mean Corpuscular Hemoglobin 29.2 pg (27.0-33.0); Mean Corpuscular Volume 90.4 fL (80.0-98.0); Mean Platelet Volume 8.7 fL (9.4-12.3); Monocytes Absolute Auto 0.4 X10*3/uL (0.1-1.2); Monocytes Percent Auto 8.5 % (2-11); Neutrophils Absolute Auto 1.9 x10*3/uL (2.0-8.3); Neutrophils Percent Auto 42.8 % (45-73); Platelet Count 327 X10*3/uL (160-400); Red Blood Count 4.56 X10*6/uL (4.20-5.50); Red Cell Distribution Width 13.8 % (11.0-16.0); White Blood Count 4.3 X10*3/uL (4.8-10.8)
[2024-12-21 10:23] LABS: Anion Gap 10 (12-20)
[2024-12-21 10:41] LABS: Alanine Aminotransferase 24 U/L (0-31); Albumin Level 4.5 g/dL (3.5-5.0); Alkaline Phosphatase 70 U/L (39-117); Aspartate Amino Transferase 29 U/L (5-31); Bilirubin Total 0.4 mg/dL (0.0-1.0); Blood Urea Nitrogen 14 mg/dL (9-16); Carbon Dioxide 30 mmol/L (22-29); Chloride 107 mmol/L (96-108); Cholesterol 169 mg/dL (<200); Estimated Glomerular Filt Rate > 60; Glucose Fasting 95 mg/dL (60-99); HDL Cholesterol 72 mg/dL (>40); LDL Cholesterol Calculated 85 mg/dL (<100); Potassium 4.7 mmol/L (3.3-5.1); Sodium 142 mmol/L (135-145); Total Protein 7.1 g/dL (6.5-8.0); Triglycerides 63 mg/dL (<150)
[2024-12-21 10:52] LABS: TSH reflex Free T4 2.59 uIU/mL (0.32-4.0); Vitamin D 25-OH Total 137.4 ng/mL (>30)
== END 2024-12-21 06:57 | disposition home or self-care (01) ==
LOC: HO.HMGCLDS 06:56
PROVIDERS: PCP Internal Medicine; Visit Provider Internal Medicine
DX: Z78.0 Asymptomatic menopausal state (principal); Z00.00 Encounter for general adult medical examination without abnormal findings; E78.5 Hyperlipidemia, unspecified; E55.9 Vitamin D deficiency, unspecified
CPT/HCPCS: 36415; 80053; 80061; 82306; 84443; 85025

== ENCOUNTER 2025-01-02 08:05 | Outpatient (REF) | payer MEDICARE, SELFPAY ==
--- NOTE | ~2025-01-02 | MM_ITS ---
EXAMINATION: MM SCREENING DIGITAL BREAST TOMOSYNTHESIS, BILATERAL CLINICAL INFORMATION: Screening. Asymptomatic. COMPARISON: Mammography: Comparison is made with available priors TECHNIQUE: Digital breast mammography with tomosynthesis is performed in both the craniocaudal and mediolateral oblique views along with computer-aided detection (CAD). FINDINGS: The breasts are heterogeneously dense, which may obscure small masses (ACR BI-RADS breast composition Category c). There are no significant masses, abnormal calcifications, or other abnormalities. MM/MM tomosynthesis screening BI IMPRESSION: No mammographic evidence of malignancy. ASSESSMENT: BI-RADS BI-RADS 1 - Negative RECOMMENDATION: Routine annual mammography screening. 1 year F/U This examination should not preclude the clinical evaluation of a suspicious palpable abnormality. This patient's information was entered into a reminder system with a target due date for their next mammogram. Electronically signed by: Linh Lau DO 01/05/2025 05:33 PM EDT
== END 2025-01-02 08:06 | disposition home or self-care (01) ==
LOC: HO.MAMMO 08:05
PROVIDERS: PCP Internal Medicine; Visit Provider Internal Medicine
DX: Z12.31 Encounter for screening mammogram for malignant neoplasm of breast (principal); R92.333 Mammographic heterogeneous density, bilateral breasts
CPT/HCPCS: 77063; 77067

== ENCOUNTER → 2025-01-02 08:15 | Outpatient (BNV) | payer MEDICARE, SELFPAY | PROVIDERS: PCP Internal Medicine; Visit Provider Internal Medicine | DX: Z12.31 Encounter for screening mammogram for malignant neoplasm of breast (principal) | CPT/HCPCS: 77063; 77067 ==

== ENCOUNTER 2025-01-30 12:12 | Outpatient (AMB) | payer MEDICARE, SELFPAY ==
--- NOTE | 2025-01-30 12:20 | AM.OFFWIN_ITS ---
Intake Vital Signs 01/30/25 12:22 Height 5 ft 2 in Weight 144 lb BMI 26.3 BP 132/74 Blood Pressure Location Rt brachial Position Sitting Pulse 74 Pulse Source Pulse Oximeter Temp 97.6 F Temp Source Oral Pulse Oximetry (%) 96 Oxygen Delivery Method Room Air Intake Visit Reasons: EP pain on RT shoulder blade Patient Tobacco Use Status: Former Tobacco user Flare Worker Required: No Is last menstrual period known: No Post menopausal: Yes Patient : No Allergies No Known Allergies Allergy (Verified 01/30/25 12:28) Medication List - Last Reconciled 01/30/25 by Macrina Vizcarra, MACHINE SHOP LEAD MAN-BC atorvastatin 20 mg PO DAILY naproxen 500 mg PO BID PRN omeprazole 20 mg PO DAILY Do you need a note to return to daycare/school/sports/work: Yes HPI HPI Comments History of Present Illness Details History of Present Illness - The patient is a 69-year-old female pr esenting with right shoulder pain. - Pain onset on a Wednesday, worsened by re petitive motions, persists despite naproxen usage. - Relief only in lying flat position, wo rsens with activity. - Nausea present; denies vomiting, fever , injury, or falls. - History includes fibromyalgia and oste oarthritis. Review of Systems - Musculoskeletal: Reports right shoulde r pain. - Gastrointestinal: Reports nausea; vick es vomiting. - Constitutional: Denies fever. - Cardiovascular: Denies jaw pain. - Gastrointestinal: Denies pain with eat ing. - Musculoskeletal: Denies other regional pains like low back pain. 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 To rule out any cardiac involvement due to atypical presentations in females, I have planned an EKG, this was normal. I advised the patient to avoid activities aggravating the pain and discussed trial use of different analgesics or anti-inflammatory medications. I also mentioned potential follow-up steps should symptoms persist or worsen. Assessment and Plan 1. Right Shoulder Pain - Suspected musculoskeletal origin. - HOLD naproxen, trial meloxicam and spa ring use of baclofen. Topical analgesics and nonpharm intervention. Out of work 2 days. - Advise rest, activity modification, an d analgesics. 2. Fibromyalgia - Differentiate pain from existing condi tion. Made aware this could also be gallbladder and this would need to be evaled by PCP RTO instructions provided. All questions answered. Patient Instructions - Rest your shoulder and avoid any movem ents that increase your pain. - Use prescribed pain relief or over-the -counter medications as advised. - Return or seek help immediately if sym ptoms worsen or new symptoms like chest pain occur. Consent Patient was informed and verbally consented to the use of an ambient scribe for clinic note documentation during this visit. Total time spent caring for the patient today was 40 minutes. This includes time spent before the visit reviewing the chart, time spent during the visit, and time spent after the visit on documentation, reviewing laboratory results, diagnostic imaging, medications, performing a medically necessary evaluation, counseling on diagnoses, care coordination, ordering appropriate tests, ordering appropriate medications, review of tests performed by other providers, reporting test results with the patient, communication with other healthcare providers. [facility] Medical History (Updated 01/30/25 @ 12:51 by Macrina Vizcarra [facility]) Annual physical exam Fibromyalgia GERD (gastroesophageal reflux disease) Hepatitis C Hyperlipidemia Insomnia Osteoarthritis Osteoporosis Recovering alcoholic Uveitis Surgical History H/O colonoscopy History of esophagogastroduodenoscopy (EGD) Hx of umbilical hernia repair S/P LEONARDO (total abdominal hysterectomy) Family History Father Substance use disorder Brother Substance use disorder Brother Substance use disorder Social History Housing: House Patient Tobacco Use Status: Former Tobacco user e-Cigarette/Vaping Use: Never Used Patient : No service: No Current occupational status: retired Cognitive needs: No Hearing needs: No Vision needs: Yes Physical Exam Vital Signs: Last Vital Signs Temp 97.6 F 01/30/25 12:22 Pulse 74 01/30/25 12:22 BP 132/74 01/30/25 12:22 Pulse Ox 96 01/30/25 12:22 Oxygen Delivery Method Room Air 01/30/25 12:22 BMI result Body Mass Index 26.3 Office Procedures EKG 44134-Bjadzrrbnqfprdwth, Complete Assessment & Plan Assessment & Plan (1) Pain of right scapula: Code(s): M89.8X1 - Other specified disorders of bone, shoulder (2) Fibromyalgia: Code(s): M79.7 - Fibromyalgia Plan . Medications: New meloxicam 15 mg PO DAILY 14 tabs 0RF baclofen 10 mg PO TID PRN 15 tabs 0RF muscle spasm Coding Level of Care Code Est Pt Level 5 (24939) Diagnoses Pain of right scapula M89.8X1 Fibromyalgia M79.7 CPT Codes EKG - CPT: 09315-Vvldmnrwbnuiqfoaw, Complete ([id number])
[2025-01-30 12:22] VITALS: BP 132/74; PULSE 74; TEMP 36.4; O2SAT 96; BMI 26.3
--- OUTSIDE RECORDS SUMMARY | 2025-01-30 13:17 | XMS_ITS | Patient Health Record ---
Author Organization [facility] Address [address] [place] [address] Care Team Providers Care Director Community Health Nursing Name Role Phone [place] Benjamin MD Primary Care Provider Unavaila Jesi Carlos Unavailable [phone] Reason For Referral No Information Encounters Encounter Location Date Provider Diagnosis [facility] [address] [place] [address] 03/23/2024 Jesi Harris Plan Of Treatment No Information Insurance Providers Payer Name Payer Address Payer Phone Subscriber Number Group Number Insured Name Patient Relationship to Insured Coverage Start Date Coverage End Date BlueCare 65 Medicare Preferred [address] [place] [address] [id number] Cony Flowesr Self - patient is the insured
== END 2025-01-30 14:32 | disposition home or self-care (01) ==
PROVIDERS: PCP Internal Medicine; Visit Provider Nurse Practitioner Family
DX: M89.8X1 Other specified disorders of bone, shoulder (principal); M79.7 Fibromyalgia

== ENCOUNTER → 2025-01-30 12:12 | Outpatient (BNVA) | payer MEDICARE, SELFPAY | PROVIDERS: PCP Internal Medicine; Visit Provider Nurse Practitioner Family | DX: M79.7 Fibromyalgia (principal); M25.511 Pain in right shoulder; M89.8X1 Other specified disorders of bone, shoulder | CPT/HCPCS: 93005; 99212 ==

== ENCOUNTER 2025-02-02 12:54 | Outpatient (AMB) | payer MEDICARE, SELFPAY ==
--- NOTE | 2025-02-02 12:57 | MHC.PC.OV ---
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 Accompanied by: Self / Same As Patient Allergies No Known Allergies Allergy (Verified 02/02/25 13:02) Medication List - Last Reconciled 02/02/25 by [place]a Benjamin MD atorvastatin 20 mg PO DAILY baclofen 20 mg (2 x 10 mg) PO .qhs lidocaine 5% 2 patches topical DAILY meloxicam 15 mg PO DAILY naproxen 500 mg PO BID PRN omeprazole 20 mg PO DAILY Tobacco use date assessed: 02/02/25 Fall risk assessment: No Falls in past year Last assessed Fall Risk: 02/02/25 Dental Screening Dental Screen Date: 02/02/25 Did you have a dental visit in the last 12 months?: Yes Did you have a dental problem in the last 6 months where you did not have access to dental care?: No Was dental information given to patient?: Patient has dentist HPI F/U pain shoulder HPI Details Pt c/o persistent pain in the right supraspinatus muscle paraspinal upper thoracic region for 1 week after patient strained putting a heavy fan in the window. Pt was seen on walk in, prescribed Meloxicam and baclofen which she has been taking for 3 days. 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 She denies any weakness or numbness in right upper extremity PFSH Medical History Annual physical exam Osteoporosis Uveitis Hepatitis C GERD (gastroesophageal reflux disease) Insomnia Recovering alcoholic Osteoarthritis Fibromyalgia Hyperlipidemia Surgical History Hx of umbilical hernia repair S/P LEONARDO (total abdominal hysterectomy) History of esophagogastroduodenoscopy (EGD) H/O colonoscopy Family History Father Substance use disorder Brother Substance use disorder Brother Substance use disorder Social History Housing: House Patient Tobacco Use Status: Former Tobacco user e-Cigarette/Vaping Use: Never Used service: No Current occupational status: retired Cognitive needs: No Hearing needs: No Vision needs: Yes Questionnaire PHQ-9 Over the last 2 weeks, how often have you been bothered by any of the following problems? 1. Little interest or pleasure in doing things: not at all 2. Feeling down, depressed, or hopeless: not at all 3. Trouble falling or staying asleep, or sleeping too much: not at all 4. Feeling tired or having little energy: not at all 5. Poor appetite or overeating: not at all 6. Feeling bad about yourself - or that you are a failure or have let yourself or your family down: not at all 7. Trouble concentrating on things, such as reading the newspaper or watching television: not at all 8. Moving or speaking so slowly that other people could have noticed. Or the opposite - being so fidgety or restless that you have been moving around a lot more than usual: not at all 9. Thoughts that you would be better off or of hurting yourself in some way: not at all Total score: 0 Depression Screening Interpretation: Negative Depression Screening Done: Yes 26096 - PHQ-9 Billing: Yes Source: Developed by Drs. Julius Newell, Hoa London, Ruddy Britton and colleagues, with an educational debbie from [employer]. Thrive Questionnaire Date Thrive assessed: 12/14/24 I am a: Patient What is your living situation today?: I have a steady place to live Within the past 12 months, did the food you bought not last and you didn't have the money to get more?: Never true Within the past 12 months, did you worry whether your food would run out before you got money to buy more?: Never true Do you have trouble paying for medicines?: No Do you have trouble getting transportation to medical appointments?: No Do you have trouble paying your heating and electricity bill?: No Do you have trouble taking care of your child, family member or friend?: No Do you have trouble with day-to-day activities such as bathing, preparing meals, shopping, managing finances, etc.?: No Are you currently unemployed and looking for a job?: No Are you interested in more education?: No Please select the resources that you would like help with: None Currently or been in a relationship where the following occur: No concerns reported THRIVE Score: 0 BRETT-7 AMB Questionnaire BRETT-7 Date BRETT - 7 assessed: 02/02/25 Feeling nervous, anxious, or on edge: 0 = Not at all Not being able to stop or control worryin = Not at all Worrying too much about different things: 0 = Not at all Trouble relaxin = Not at all Being so restless that it is hard to sit still: 0 = Not at all Becoming easily annoyed or irritable: 0 = Not at all Feeling afraid as if something awful might happen: 0 = Not at all Total BRETT-7 score (0-4 normal; 5-9 mild; 10-14 moderate; 15-21 severe): 0 Source: Developed by Drs. Julius Newell, Hoa London, Ruddy Britton and colleagues, with an educational debbie from [employer]. BRETT-7 Assessment Billing BRETT-7 Assessment Tool: BRETT-7 Assessment 33581 Review of Systems Const All systems reviewed & are unremarkable except as noted in HPI and below Eyes Reports no additional complaints Card Reports no additional complaints Resp Reports no additional complaints GI Reports no additional complaints Physical exam (Primary Care) Vital Signs: Last Vital Signs Temp 98.0 F 02/02/25 12:58 Pulse 70 02/02/25 12:58 Resp 16 02/02/25 12:58 BP 118/72 02/02/25 12:58 Pulse Ox 97 02/02/25 12:58 Oxygen Delivery Method Room Air 02/02/25 12:58 BMI result Body Mass Index 26.7 Tobacco/Smoking Status: Tobacco use Status Tobacco use date assessed 02/02/25 02/02/25 13:03 Patient Tobacco Use Status Former Tobacco user 02/02/25 13:03 e-Cigarette/Vaping Use Never Used 02/02/25 13:03 PHQ-9: PHQ-9 Score PHQ-9: Total score 0 02/02/25 13:22 Depression Screening Interpretation: Negative Thrive Assessment: Date of Thrive Assessment Date Thrive assessed 12/14/24 02/02/25 13:03 Currently or been in a relationship where the following occur: No concerns reported Const General: no acute distress HENMT Head: Yes normal to inspection Mouth: Normal oral and palatal mucosa present Eyes General: appearance normal, both eyes and all related structures Neck Neck: Yes supple Resp Effort & Inspection: normal respiratory effort Auscultation: clear to auscultation bilaterally Cardio Rhythm: regular rhythm Heart sounds: S1 normal heart sound present and S2 normal heart sound present Extrem Other: The to reproducible tenderness over right supraspinatus and upper thoracic paraspinal region. Right shoulder with a full range of motion Coding Level of Care Code Est Pt Level 3 (09194) Diagnoses Upper back pain, chronic M54.9; G89.29 Additional Codes BRETT-7 Assessment Billing - BRETT-7 Assessment Tool: BRETT-7 Assessment 46587 ([id number]) PHQ-9 - 25151 - PHQ-9 Billing: Yes ([id number]) Assessment & Plan Assessment & Plan (1) Upper back pain, chronic: Code(s): M54.9 - Dorsalgia, unspecified; G89.29 - Other chronic pain Category: Medical Plan: For musculoskeletal strain patient will continue meloxicam and baclofen, will be referred to physical therapy. she can try lidocaine patch as needed. Out of work until February 11 Orders: Orders PT Evaluation and Treatment Today G89.29 - Other chronic pain, M54.9 - Dorsalgia, unspecified Medications: New lidocaine 5% leave on most painful area for up to 12 hrs 2 patches topical DAILY 30 ea 0RF Changed From baclofen 10 mg PO TID PRN 15 tabs 0RF muscle spasm To baclofen 20 mg (2 x 10 mg) PO .qhs 20 tabs 0RF muscle spasm
--- OUTSIDE RECORDS SUMMARY | 2025-02-02 12:57 | XMS_ITS | Encounter Summary ---
Author Organization [facility] Address [address] [place] [address] Care Team Providers Care Special Assemblies Supervisor Name Role Phone [place]a Benjamin MD Primary Care Provider Ebenezera ble Encounter Details Date Type Department Care Team Description 02/01/2018 Transfer Records Medical Records [address] [place] [id number] Abstract, Provider Social History Tobacco Use Types Packs/Day Years Used Date Smoking Tobacco: Former Smokeless Tobacco: Never Comments:quit 30 years ago Alcohol Use Standard Drinks/Week Comments No 0 (1 standard drink = 0.6 oz pur e alcohol) Sex Assigned at Date Recorded Not on file documented as of this encounter Plan of Treatment Not on file documented as of this encounter Visit Diagnoses Not on filedocumented in this encounter Care Teams Special Assemblies Supervisor Relationship Specialty Start Date End Date [place]a Benjamin MD PCP - General Internal Medicine 11/17/17 documented as of this encounter
--- OUTSIDE RECORDS SUMMARY | 2025-02-02 12:57 | XMS_ITS | Patient Health Record ---
Author Organization [facility] Address [address] [place] [address] Care Team Providers Care Passenger Rate Clerk Name Role Phone [place] Benjamin MD Primary Care Provider Unavaila Jesi Carlos Unavailable [phone] Reason For Referral No Information Encounters Encounter Location Date Provider Diagnosis [facility] [address] [place] [address] 03/23/2024 Jesi Harris Plan Of Treatment No Information Insurance Providers Payer Name Payer Address Payer Phone Subscriber Number Group Number Insured Name Patient Relationship to Insured Coverage Start Date Coverage End Date BlueCare 65 Medicare Preferred [address] [place] [address] [phone] [id number] Cony Flowers Self - patient is the insured
[2025-02-02 12:58] VITALS: BP 118/72; PULSE 70; RESP 16; TEMP 36.7; O2SAT 97; BMI 26.7
== END 2025-02-02 15:12 | disposition home or self-care (01) ==
LOC: HO.HMCC 12:55
PROVIDERS: PCP Internal Medicine; Visit Provider Internal Medicine
DX: M54.9 Dorsalgia, unspecified (principal); G89.29 Other chronic pain

== ENCOUNTER → 2025-02-02 12:54 | Outpatient (BNVA) | payer MEDICARE, SELFPAY | PROVIDERS: PCP Internal Medicine; Visit Provider Internal Medicine | DX: M25.511 Pain in right shoulder (principal); M54.9 Dorsalgia, unspecified; G89.29 Other chronic pain | CPT/HCPCS: 96127; 99212 ==

== ENCOUNTER 2025-02-06 08:49 | Outpatient (REF) | payer MEDICARE, SELFPAY ==
--- NOTE | ~2025-02-06 | XR_ITS ---
EXAMINATION: XR THORACIC SPINE 2 VIEWS HISTORY: M54.6 - Pain in thoracic spine COMPARISON: Comparison is made with the prior examination dated 08/28/2016. FINDINGS: AP and lateral views of the thoracic spine are submitted. Osseous mineralization is normal. The vertebral bodies maintain normal height and alignment without evidence of fracture or subluxation. There is mild degenerative disc disease with disc space narrowing and osteophyte formation. The visualized paraspinal soft tissues are unremarkable. XR/XR thoracic spine 2V IMPRESSION: Mild degenerative disc disease. Electronically signed by: Julius Reaves MD 02/06/2025 09:20 AM EDT
--- NOTE | ~2025-02-06 | XR_ITS ---
EXAMINATION: XR CERVICAL SPINE 2-3 VIEWS HISTORY: Pain in cervical spine. COMPARISON: Comparison is made with the prior examination dated 08/28/2016. FINDINGS: AP and lateral views of the cervical spine are submitted. Osseous mineralization is normal. Seven cervical vertebral bodies are identified maintaining normal height and alignment without evidence of fracture or subluxation. There is moderate to severe degenerative disc disease, most prominent at C3-4 and C4-5, with disc space narrowing and osteophyte formation. Milder changes are noted at the remaining levels. There is no prevertebral soft tissue swelling. XR/XR cervical spine 2V IMPRESSION: Moderate to severe degenerative disc disease as described. Electronically signed by: Julius Reaves MD 02/06/2025 09:22 AM EDT
--- OUTSIDE RECORDS SUMMARY | 2025-02-06 09:05 | XMS_ITS | Patient Health Record ---
Author Organization [facility] Address [address] [place] [address] Care Team Providers Care Family Practice Nurse Practitioner Name Role Phone [place] MD Primary Care Provider Unavaila Jesi Carlos Unavailable [phone] Reason For Referral No Information Encounters Encounter Location Date Provider Diagnosis [facility] [address] [place] [address] 03/23/2024 Jesi Harris Plan Of Treatment No Information Insurance Providers Payer Name Payer Address Payer Phone Subscriber Number Group Number Insured Name Patient Relationship to Insured Coverage Start Date Coverage End Date BlueCare 65 Medicare Preferred [address] [place] [address] [id number] Cony Flowers Self - patient is the insured
== END 2025-02-06 08:50 | disposition home or self-care (01) ==
LOC: HO.HMGCX 08:49
PROVIDERS: PCP Internal Medicine; Visit Provider Internal Medicine
DX: M54.6 Pain in thoracic spine (principal); M54.12 Radiculopathy, cervical region; M54.2 Cervicalgia
CPT/HCPCS: 72040; 72070

== ENCOUNTER → 2025-02-06 08:54 | Outpatient (BNV) | payer MEDICARE, SELFPAY | PROVIDERS: PCP Internal Medicine; Visit Provider Radiology Diagnostic Radiology | DX: M50.30 Other cervical disc degeneration, unspecified cervical region (principal); M54.6 Pain in thoracic spine | CPT/HCPCS: 72040; 72070 ==

== ENCOUNTER 2025-03-22 11:00 | Outpatient (RCR) | payer MEDICARE, SELFPAY ==
--- NOTE | 2025-02-08 15:15 | MHC.PT.EP ---
[facility] [place] Office [place] Office [place] Office [address] Nicanor Navas [address] [phone] F: [phone] F: [phone] F: [phone] F: [phone] Physical Therapy Plan of Care Date of Evaluation: 02/08/25 Date of Surgery: Diagnosis: This is a 69 yo female presenting to skilled PT with a script for upper back pain. Assessment: This is a 69 yo female presenting to skilled PT with a script for upper back pain. 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 Prior to this incident she does endorse some UT, neck and arm soreness but not as bad as after this incident. Pt was seen on walk in x2 and had another telehealth on top of this. At the walk in she was given medication but this did not seem to improve her pain x2. She returned for a follow up telehealth and was given prednisone in addition which has helped some with her pain. She was educated to remain out of work at this time. Additionally, she has been using lidocaine patches, MH and gentle massages. She is also thinking about trialing holistic physician assistant primary care. Pain is now located R side between the scap and spine (sharp, stabbing) but additionally she has lateral neck, R UT and R arm symptoms to the elbow (aching). She also endorses some hand symptoms (numbness) that comes and goes. Assessment reveals pain that ranges from up to a 7/10 at the worst. Patient demos decreased R shoulder and cervical ROM, strength of R shoulder and scapular stabilizers, TTP at c-spine soft tissues, medial border of scap, UT, ACJ and impaired posture with forward head and rounded shoulders. Based on functional limitations, impaired QOL and pain tolerance patient is a good candidate for skilled PT 2x/wk for 4wks Frequency and Duration: The patient will be seen 2x/wk for 4 wks Short Term Goals: (In 2 weeks) Demo I with HEP Improve shoulder AROM by at least 10 degs Demo proper scapular recruitment with appropriate shoulder strengthening exercises (in 2 wks) I in HEP Improve cervical ROM by at least 25% Demo proper cervical positioning with progression of UB strengthening exercises without cues from PT Retirement Goals: (in 4 wks) Improve shoulder nonpainful AROM to almost near equal B Demo at least 1 grade improvement in MMT for shoulder Improve SPADI by at least 10 points Improve overall functional QOL by at least 75% (in 4 wks) Tolerate sleeping through the night without waking from pain/sleep on the R Improve NDI by 10 points Improve pain to no more than 2/10 at the worst Treatment Plan: Modalities to reduce pain, spasms and effusion. Manual therapy to restore motion and function. Therapeutic exercise to improve strength and flexibility. Neuromuscular re-education for posture and balance. Therapeutic activities to return to functional activities of daily living. Electronically signed by: Cecilia Ingram PT Please sign and return to therapist. Thank you for your referral.
--- NOTE | 2025-04-05 12:53 | MHC.PT.DC ---
[facility] [place] [facility] [place] Office [place] Office [address] Nicanor Navas [address] [phone] F: [phone] F: [phone] F: [phone] F: [phone] Physical Therapy Discharge Report Diagnosis: This is a 69 yo female presenting to skilled PT with a script for upper back pain. Date of Surgery: Date of Evaluation: 02/08/25 Date of Discharge: 04/05/25 Treatments to Date: 12 Cancellations to Date: 0 No Shows to Date: 0 Discharge Status: Achieved Goals Improved Function Independent with HEP Discharge Summary: Patient has come to 12 sessions of PT. She has improved her symptoms, centralized her pain, is I in her HEP, has returned to work in full and has returned to normal ADLs, hobbies and household tasks. At this time she is appropriate for DC and would benefit from continued HEP on her own. She has met her goals and is ready for DC. Electronically signed by: Cecilia Ingram, PT Please sign and return to therapist. Thank you for your referral.
== END 2025-04-05 12:55 | disposition home or self-care (01) ==
LOC: HO.PTCHIC 11:00
PROVIDERS: PCP Internal Medicine; Visit Provider Internal Medicine
DX: M54.6 Pain in thoracic spine (principal); G89.29 Other chronic pain
CPT/HCPCS: 97110; 97140; 97162